=== PATIENT | female | born 1960 | race Caucasian/White ===

== ENCOUNTER 2020-05-13 12:57 | Outpatient (CLI) | payer OTHER ==
--- NOTE | 2020-05-13 13:40 | RAD ---
LEFT HIP: 05/13/20 Two views. HISTORY: Fall with injury. Femoral head and femoral neck appear normally positioned and have an unremarkable appearance. There is irregularity of the greater trochanter. I cannot completely exclude fracture involving the g reater trochanter. The visualized pelvis is intact. No other abnormality. IMPRESSION: Question slight deformity of the greater trochanter. Recommend AP pelvis to assess symmetry with the right hip. POS: AH
--- NOTE | 2020-05-13 13:40 | RAD ---
LEFT FEMUR 2 VIEWS: Date: 05/13/2020 HISTORY: Left hip pain, fall. FINDINGS/IMPRESSION: There is suggestion of a fracture involving the left greater trochanter. POS: OFF
== END 2020-05-13 12:58 | disposition home or self-care (01) ==
LOC: MADRAD 12:57
PROVIDERS: ATTEND Nurse Practitioner Family
DX: M25.552 Pain in left hip (principal); M89.8X5 Other specified disorders of bone, thigh

== ENCOUNTER 2021-03-26 14:09 | Outpatient (CLI) | payer OTHER | END 2021-03-26 14:10 | disposition home or self-care (01) | LOC: MADRAD 14:09 | PROVIDERS: ATTEND Nurse Practitioner Family | DX: M25.552 Pain in left hip (principal); Z91.81 History of falling; Z87.81 Personal history of (healed) traumatic fracture | CPT/HCPCS: 72170 ==

== ENCOUNTER 2021-06-29 15:20 | Outpatient (CLI) | payer OTHER | END 2021-06-29 15:21 | disposition home or self-care (01) | LOC: MADRAD 15:20 | PROVIDERS: ATTEND Nurse Practitioner Family | DX: M25.511 Pain in right shoulder (principal); S43.101A Unspecified dislocation of right acromioclavicular joint, initial encounter; Z91.81 History of falling ==

== ENCOUNTER 2021-08-09 17:40 | Outpatient (CLI) | payer OTHER ==
[2021-08-09 18:42] LABS: Bilirubin Small (Negative); Blood, Urine Trace (Negative); Glucose, Urine (Dipstick) Negative (Negative); Ketone, Urine Trace mg/dL (Negative); Leukocyte Large (Negative); Nitrite Positive (Negative); Protein, Urine (Dipstick) 100 mg/dL (Neg-Trace); Specific Gravity, Urine 1.015 (1.005-1.030)
[2021-08-09 18:54] LABS: Albumin 4.1 g/dL (3.4-4.8); Anion Gap 15 mmol/L (10-20); BUN (Urea Nitrogen) 14 mg/dL (9.8-20.1); Calc. Creatinine Clearance 0 mL/min (70-130); Calcium 11.1 mg/dL (7.8-10.44); Carbon Dioxide 23 mmol/L (23-31); Chloride 107 mmol/L (98-107); Glucose 91 mg/dL (80-115); Magnesium 1.3 mg/dL (1.6-2.6); Phosphorus 2.2 mg/dL (2.3-4.7); Potassium 3.9 mmol/L (3.5-5.1); Sodium 141 mmol/L (136-145); Uric Acid 6.6 mg/dL (2.6-6.0)
[2021-08-09 19:01] LABS: #Basophils 0.2 thou/uL (0.0-0.2); #Eosinphils 0.7 thou/uL (0.0-0.7); #Lymphocytes 3.2 thou/uL (1.20-3.40); #Monocytes 0.8 thou/uL (0.11-0.59); #Neutrophils 6.5 thou/uL (1.40-6.50); %Basophils 1.7 % (0.0-1.0); %Monocytes 7.3 % (0.0-10.0); %Neutrophils 57.1 % (42.0-75.0); Hemoglobin 12.1 g/dL (12.0-16.0); Mean Corpuscular HGB CONC 31.8 g/dL (32.0-36.0); Mean Corpuscular Hemoglobin 33.1 pg (27.0-31.0); Mean Corpuscular Volume 104.3 fL (78.0-98.0); Mean Platelet Volume 7.7 fL (7.4-10.4); Platelet Count 236 thou/uL (130-400); RBC Distribution Width 13.4 % (11.5-14.5); Red Blood Cell (RBC) Count 3.64 mill/uL (4.20-5.40); White Blood Cell (WBC) Count 11.5 thou/uL (4.8-10.8)
[2021-08-09 19:05] LABS: Clarity Cloudy (Clear); pH, Urine Greater/Equal 9.0 (5.0-9.0)
[2021-08-09 19:08] LABS: Bacteria/HPF 3+ HPF (None Seen); RBC/HPF 0-3 HPF (0-3); Squamous Epithelial 0-3 HPF (0-3); WBC/HPF Greater Than 50 HPF (0-3)
[2021-08-10 11:39] LABS: Creatinine, Urine 170.2 mg/dL (47-110)
[2021-08-10 12:20] LABS: Follow-up Result - Chemistry REPORT FAXED
[2021-08-10 12:21] LABS: Follow-up Chemistry Comp? YES
== END 2021-08-09 17:41 | disposition home or self-care (01) ==
LOC: MADLAB 17:40 → MADRAD 17:41
PROVIDERS: ATTEND Internal Medicine Nephrology
DX: I12.9 Hypertensive chronic kidney disease with stage 1 through stage 4 chronic kidney disease, or unspecified chronic kidney disease (principal); N18.30 Chronic kidney disease, stage 3 unspecified; E87.5 Hyperkalemia
CPT/HCPCS: 36415; 80048; 81001; 82040; 82306; 82570; 83735; 83970; 84100; 84156; 84550; 85025

== ENCOUNTER 2021-08-27 20:03 | Emergency (ER) | payer OTHER ==
[~2021-08-27 20:03] MED LIST: Amoxicillin/Potassium Clav 875 MG TAB ONE; Lidocaine 1% (PF) 30 ML VIAL ONE
== END 2021-08-27 21:38 | disposition home or self-care (01) ==
LOC: MADERS 20:03
DX: S01.112A Laceration without foreign body of left eyelid and periocular area, initial encounter (principal); Z86.73 Personal history of transient ischemic attack (TIA), and cerebral infarction without residual deficits; W01.198A Fall on same level from slipping, tripping and stumbling with subsequent striking against other object, initial encounter
CPT/HCPCS: 12014; J2001

== ENCOUNTER 2021-09-23 18:15 | Emergency (ER) | payer OTHER ==
[2021-09-23] MEDS ORDERED: Lidocaine 1% w/Epinephrine 1:100K 20 ML VIAL ONE (18:49)
[2021-09-23] MEDS ORDERED: Bacitracin 1 PK ONE (18:49)
== END 2021-09-23 19:41 | disposition home or self-care (01) ==
LOC: MADERS 18:15
DX: S01.81XA Laceration without foreign body of other part of head, initial encounter (principal); W01.0XXA Fall on same level from slipping, tripping and stumbling without subsequent striking against object, initial encounter; Z86.73 Personal history of transient ischemic attack (TIA), and cerebral infarction without residual deficits
CPT/HCPCS: 12011